=== PATIENT | male | born 1950 | race Caucasian/White ===

== ENCOUNTER → 2018-10-27 08:55 | Outpatient (CLI) | payer MEDICARE | END | disposition home or self-care (01) | LOC: D.US 08:55 | PROVIDERS: ATTEND Legal Medicine | DX: R59.0 Localized enlarged lymph nodes (principal) ==

== ENCOUNTER → 2018-10-30 15:28 | Outpatient (CLI) | payer MEDICARE | END | disposition home or self-care (01) | LOC: D.CT 15:28 | PROVIDERS: ATTEND Legal Medicine | DX: R59.0 Localized enlarged lymph nodes (principal) ==